=== PATIENT | male | born 1975 | race Caucasian/White ===

== ENCOUNTER → 2022-06-18 | Outpatient (CLI) | payer MEDICAID ==
--- NOTE | 2022-06-18 11:56 | US ---
EXAMINATION TYPE: US carotid duplex BILAT DATE OF EXAM: 06/18/2022 COMPARISON: NONE CLINICAL HISTORY: R55 VASOVAGAL syncope R25.1 TREMORS G45.9 TIA. Seizure tia TECHNIQUE: Carotid duplex ultrasound examination. Indirect Doppler criteria was utilized. FINDINGS: EXAM MEASUREMENTS: RIGHT: Peak Systolic Velocity (PSV) cm/sec ----- Right CCA: 82.3 ----- Right ICA: 82.3 ----- Right ECA: 109.9 ICA/CCA ratio: 1.0 RIGHT: End Diastole cm/sec ----- Right CCA: 29.9 ----- Right ICA: 43 ----- Right ECA: 27 LEFT: Peak Systolic Velocity (PSV) cm/sec ----- Left CCA: 57.5 ----- Left ICA: 77.9 ----- Left ECA: 99.7 ICA/CCA ratio: 1.4 LEFT: End Diastole cm/sec ----- Left CCA: 27 ----- Left ICA: 40.1 ----- Left ECA: 24.1 VERTEBRALS (direction of flow): Right Vertebral: Antegrade Left Vertebral: Antegrade Rhythm: Normal GORE MAKER NOTES: No significant stenosis seen IMPRESSION: Less than 50% stenosis of the bilateral carotid bifurcations. Criteria for Assigning % of Stenosis / Diameter reduction (Estimation based on the indirect measurements of the internal carotid artery velocities (ICA PSV). 1. Normal (no stenosis)=ICA PSV < 125 cm/s: ratio < 2.0: ICA EDV<40 cm/s. 2. Less than 50% stenosis=ICA PSV < 125 cm/s: ratio < 2.0: ICA EDV<40 cm/s. 3. 50 to 69% stenosis=ICA PSV of 125 to 230 cm/s: ration 2.0 ? 4.0: ICA EDV 40-100 cm/s. 4. Greater than 70% stenosis to near occlusion= ICA PSV > 230 cm/s: ratio > 4.0: ICA EDV > 100 cm/s. 5. Near occlusion= ICA PSV velocities may be low or undetectable: variable ratio and ICA EDV. 6. Total occlusion=unable to detect flow.
== END | disposition home or self-care (01) ==
LOC: RADUSWWP 09:07
PROVIDERS: ATTEND Psychiatry & Neurology Neurology
DX: I65.23 Occlusion and stenosis of bilateral carotid arteries (principal); R55 Syncope and collapse; R25.1 Tremor, unspecified; R56.9 Unspecified convulsions
CPT/HCPCS: 93880